=== PATIENT | male | born 1970 | race Caucasian/White ===

== ENCOUNTER 2019-06-04 12:01 | Inpatient (IN) | payer OTHER ==
[2019-06-04] MEDS ORDERED: SODIUM CHLORIDE 0.9% 1,000 ML IV STA (12:39)
--- NOTE | 2019-06-04 13:30 | XR ---
EXAMINATION TYPE: XR chest 2V DATE OF EXAM: 06/04/2019 COMPARISON: NONE TECHNIQUE: PA and lateral views submitted. HISTORY: Dizziness FINDINGS: The lungs are clear and there is no pneumothorax, pleural effusion, or focal pneumonia. Heart is mi ldly enlarged and there is hypertrophic and degenerative change of the spine. No overt failure. Biapi refugio pleural thickening. IMPRESSION: 1. Mild cardiomegaly.
--- NOTE | 2019-06-04 13:33 | ED ---
Dizziness HPI - General Source: patient, RN notes reviewed, old records reviewed Mode of arrival: ambulatory Limitations: no limitations <Sherley Mcbride - Last Filed: 06/04/19 16:44> <Francisco Valero - Last Filed: 06/04/19 17:01> - General Chief Complaint: Dizziness Stated Complaint: lab draws-[facility] Time Seen by Provider: 06/04/19 12:29 - History of Present Illness Initial Comments: 48-year-old male presents emergency department today with [facility] exposure to chemicals work. Patient reports that he was exposed to chemicals that are used to make hot plates, and exposed to "Electropolish". Patient reports his been a certain area where his been exposed to a lecture [place] frequently for the past 2 weeks. Patient states that this occurred on Friday and he is feeling abnormal at that time, with complaints of feeling dizzy. He left work on Friday. He reports he's had persistent paresthesias and shakiness. He states he is had tingling sensation and paresthesias down his bilateral upper extremities, lower extremities and feeling "foggy in his head". Patient complains of feeling somewhat nauseated. He denies any ingestion of the chemicals. He states it would only be exposed to through inhalation. Patient reports that he's had another coworker who had paresthesias around his lips with a near this chemical. (Sherley Mcbride) - Related Data Allergies Allergy/AdvReac Type Severity Reaction Status Date / Time No Known Allergies Allergy Verified 06/04/19 12:11 Review of Systems ROS Other: All systems not noted in ROS Statement are negative. <Sherley Mcbride - Last Filed: 06/04/19 16:44> ROS Other: All systems not noted in ROS Statement are negative. <Francisco Valero - Last Filed: 06/04/19 17:01> ROS Statement: Those systems with pertinent positive or pertinent negative responses have been documented in the HPI. Past Medical History Past Medical History: Hypertension Additional Past Medical History / Comment(s): gout History of Any Multi-Drug Resistant Organisms: None Reported Past Surgical History: Orthopedic Surgery Additional Past Surgical History / Comment(s): rt knee Past Psychological History: No Psychological Hx Reported Smoking Status: Never smoker Past Alcohol Use History: None Reported Past Drug Use History: None Reported <Sherley Mcbride - Last Filed: 06/04/19 16:44> General Exam Limitations: no limitations General appearance: alert, in no apparent distress Head exam: Present: atraumatic, normocephalic, normal inspection Eye exam: Present: normal appearance, PERRL, EOMI. Absent: scleral icterus, conjunctival injection, periorbital swelling ENT exam: Present: normal exam, mucous membranes moist Neck exam: Present: normal inspection. Absent: tenderness, meningismus, lymphadenopathy Respiratory exam: Present: normal lung sounds bilaterally. Absent: respiratory distress, wheezes, rales, rhonchi, stridor Cardiovascular Exam: Present: regular rate, normal rhythm, normal heart sounds. Absent: systolic murmur, diastolic murmur, rubs, gallop, clicks GI/Abdominal exam: Present: soft, normal bowel sounds. Absent: distended, tenderness, guarding, rebound, rigid Extremities exam: Present: normal inspection, full ROM, normal capillary refill, other (Patient has some minor tremor in the upper extremity.). Absent: tenderness, pedal edema, joint swelling, calf tenderness Back exam: Present: normal inspection Neurological exam: Present: alert, oriented X3, CN II-XII intact Psychiatric exam: Present: normal affect, normal mood Skin exam: Present: warm, dry, intact, normal color. Absent: rash <CesiliabarbarawillardSherley - Last Filed: 06/04/19 16:44> - General Exam Comments Initial Comments: 48-year-old male. Alert and oriented. No significant distress. (Sherley Mcbride) Course <Courtney Mcbrideily - Last Filed: 06/04/19 16:44> Vital Signs 06/04/19 06/04/19 06/04/19 12:03 15:02 15:49 Temperature 98.6 F Pulse Rate 88 116 H 104 H Respiratory 20 18 16 Rate Blood Pressure 144/82 195/106 142/76 O2 Sat by Pulse 99 96 96 Oximetry - Reevaluation(s) Reevaluation #1: 06/04/19 16:47 I had a discussion with Dr. Elder from poison control about all the findings with the Patient including thrombocytopenia, neutropenia and persistent symptoms of dizziness, paresthesai with possible exposure to ethylene glycol, phosphoric acid and hydroxyzine take acid. She requests further lab evaluation including CK. She states that it seems unlikely that inhalation of these materials would cause persistent symptoms especially with no further exposure for the past 4 days. She did state that allopurinol, his chronic gout medication could relate to leukopenia and thrombocytopenia. She recommends discontinuing this during his hospital stay. She states that she will continue to follow the case will he is admitted. (RaeSherley) Medical Decision Making - Lab Data Result diagrams: 06/04/19 13:15 06/04/19 13:15 - Radiology Data Radiology results: report reviewed <RaeSherley - Last Filed: 06/04/19 16:44> - Lab Data Result diagrams: 06/04/19 13:15 06/04/19 13:15 <Francisco Valero - Last Filed: 06/04/19 17:01> - Medical Decision Making This patient's a 48-year-old male, who presents emergency Department today for concern for exposure to "electropolish" repeatedly over the past 2 weeks while at work. 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 Patient reports that he's had symptoms of upper and lower extremity paresthesias, feeling dizzy and lightheaded, nausea specifically worsening since Friday. He's had persistent symptoms. Patient was given IV fluids and laboratory obtained. Patient was found to be leukopenic and thrombocytopenia. This was new from some previous labs obtained by his PCP in February. At that time patient's CBC showed a white blood cell count of 9.7 and his platelets were 127. Patient reports that he is a previous drinker but denies any recent alcohol use. With patient's,or chemistry panels were completed. Mildly elevated ALP andAST. Patient does have an elevated serum osmolality at 348. On exam Patient has some minor tremor in upper extremity. Her quite anxious. Patient does have normal sensation and full range of motion and strength in upper and lower extremity. No other neurological deficits. Chest x-ray showed mild cardiomegaly. Patient's CT of the brain is negative for any acute process. With concern for thrombocytopenia and abnormal symptoms we also discussed the case with poison control. I discussed the case with Dr. Bone regards to these findings. She recommends admission, and will continue to follow the case. She states seems confusing and not 100% related to the exposure to the materials in this electropolish. Safety data sheet is on chart with more information on the exposure chemicals. Dr. Elder did recommend discontinuing patient's allopurinol as that could be in relation to his thrombocytopenia and leukopenia. Patient case disucssed with Dr. Valero. (Sherley Mcbride) I did evaluate this patient presenting with dizziness and concern for exposure. Denies ingestion. This would be respiratory exposure only. Patient well- appearing with stable vitals. He has normal lites lites, normal anion gap. S otis osmolality is 358 which is elevated. Case was discussed both with nephrology, Dr. Mecrer and poison control, currently awaiting further recommendations. Nephrology indicates that the patient should be started on lactated Ringer's to maintain hydration. Repeating all studies including osmolality in 6 hours. No need for hemodialysis at this time. I discussed case with the admitting physician Dr. Main. Toxic alcohols are pending. Repeat lab testing pending (Francisco Valero) - Lab Data Lab Results 06/04/19 06/04/19 06/04/19 Range/Units 13:15 13:15 13:15 WBC 2.8 L (3.8-10.6) k/uL RBC 4.10 L (4.30-5.90) m/uL Hgb 14.5 (13.0-17.5) gm/dL Hct 42.1 (39.0-53.0) % MCV 102.6 H (80.0-100.0) fL MCH 35.3 H (25.0-35.0) pg MCHC 34.4 (31.0-37.0) g/dL RDW 12.7 (11.5-15.5) % Plt Count 35 L (150-450) k/uL Neutrophils % (Manual) 50 % Lymphocytes % (Manual) 38 % Monocytes % (Manual) 7 % Eosinophils % (Manual) 4 % Basophils % (Manual) 1 % Neutrophils # (Manual) 1.40 (1.3-7.7) k/uL Lymphocytes # (Manual) 1.06 (1.0-4.8) k/uL Monocytes # (Manual) 0.20 (0-1.0) k/uL Eosinophils # (Manual) 0.11 (0-0.7) k/uL Basophils # (Manual) 0.03 (0-0.2) k/uL Nucleated RBCs 0 (0-0) /100 WBC Manual Slide Review Performed Macrocytosis Slight PT 12.1 H (9.0-12.0) sec INR 1.2 H (<1.2) Carbon Monoxide, Quant (<10.0) % Sodium 141 (137-145) mmol/L Potassium 4.2 (3.5-5.1) mmol/L Chloride 106 (98-107) mmol/L Carbon Dioxide 26 (22-30) mmol/L Anion Gap 9 mmol/L BUN 9 (9-20) mg/dL Creatinine 0.75 (0.66-1.25) mg/dL Est GFR (CKD-EPI)AfAm >90 (>60 ml/min/1.73 sqM) Est GFR (CKD-EPI)NonAf >90 (>60 ml/min/1.73 sqM) Glucose 104 H (74-99) mg/dL Osmolality (280-301) mosm/kg Calcium 8.6 (8.4-10.2) mg/dL Phosphorus 4.4 (2.5-4.5) mg/dL Total Bilirubin 1.3 (0.2-1.3) mg/dL AST 120 H (17-59) U/L ALT 46 (4-49) U/L Alkaline Phosphatase 142 H (38-126) U/L Troponin I (0.000-0.034) ng/mL Total Protein 8.1 (6.3-8.2) g/dL Albumin 4.6 (3.5-5.0) g/dL Urine Color Urine Appearance (Clear) Urine pH (5.0-8.0) Ur Specific [place] (1.001-1.035) Urine Protein (Negative) Urine Glucose (UA) (Negative) Urine Ketones (Negative) Urine Blood (Negative) Urine Nitrite (Negative) Urine Bilirubin (Negative) Urine Urobilinogen (<2.0) mg/dL Ur Leukocyte Esterase (Negative) Urine Opiates Screen (NotDetected) Ur Oxycodone Screen (NotDetected) Urine Methadone Screen (NotDetected) Ur Propoxyphene Screen (NotDetected) Ur Barbiturates Screen (NotDetected) U Tricyclic Antidepress (NotDetected) Ur Phencyclidine Scrn (NotDetected) Ur Amphetamines Screen (NotDetected) U Methamphetamines Scrn (NotDetected) U Benzodiazepines Scrn (NotDetected) Urine Cocaine Screen (NotDetected) U Marijuana (THC) Screen (NotDetected) Acetone, Qual (Negative) 06/04/19 06/04/19 06/04/19 Range/Units 13:15 13:15 13:15 WBC (3.8-10.6) k/uL RBC (4.30-5.90) m/uL Hgb (13.0-17.5) gm/dL Hct (39.0-53.0) % MCV (80.0-100.0) fL MCH (25.0-35.0) pg MCHC (31.0-37.0) g/dL RDW (11.5-15.5) % Plt Count (150-450) k/uL Neutrophils % (Manual) % Lymphocytes % (Manual) % Monocytes % (Manual) % Eosinophils % (Manual) % Basophils % (Manual) % Neutrophils # (Manual) (1.3-7.7) k/uL Lymphocytes # (Manual) (1.0-4.8) k/uL Monocytes # (Manual) (0-1.0) k/uL Eosinophils # (Manual) (0-0.7) k/uL Basophils # (Manual) (0-0.2) k/uL Nucleated RBCs (0-0) /100 WBC Manual Slide Review Macrocytosis PT (9.0-12.0) sec INR (<1.2) Carbon Monoxide, Quant 1.9 (<10.0) % Sodium (137-145) mmol/L Potassium (3.5-5.1) mmol/L Chloride (98-107) mmol/L Carbon Dioxide (22-30) mmol/L Anion Gap mmol/L BUN (9-20) mg/dL Creatinine (0.66-1.25) mg/dL Est GFR (CKD-EPI)AfAm (>60 ml/min/1.73 sqM) Est GFR (CKD-EPI)NonAf (>60 ml/min/1.73 sqM) Glucose (74-99) mg/dL Osmolality 348 H* (280-301) mosm/kg Calcium (8.4-10.2) mg/dL Phosphorus (2.5-4.5) mg/dL Total Bilirubin (0.2-1.3) mg/dL AST (17-59) U/L ALT (4-49) U/L Alkaline Phosphatase (38-126) U/L Troponin I <0.012 (0.000-0.034) ng/mL Total Protein (6.3-8.2) g/dL Albumin (3.5-5.0) g/dL Urine Color Urine Appearance (Clear) Urine pH (5.0-8.0) Ur Specific [place] (1.001-1.035) Urine Protein (Negative) Urine Glucose (UA) (Negative) Urine Ketones (Negative) Urine Blood (Negative) Urine Nitrite (Negative) Urine Bilirubin (Negative) Urine Urobilinogen (<2.0) mg/dL Ur Leukocyte Esterase (Negative) Urine Opiates Screen (NotDetected) Ur Oxycodone Screen (NotDetected) Urine Methadone Screen (NotDetected) Ur Propoxyphene Screen (NotDetected) Ur Barbiturates Screen (NotDetected) U Tricyclic Antidepress (NotDetected) Ur Phencyclidine Scrn (NotDetected) Ur Amphetamines Screen (NotDetected) U Methamphetamines Scrn (NotDetected) U Benzodiazepines Scrn (NotDetected) Urine Cocaine Screen (NotDetected) U Marijuana (THC) Screen (NotDetected) Acetone, Qual (Negative) 06/04/19 06/04/19 Range/Units 14:56 16:35 WBC (3.8-10.6) k/uL RBC (4.30-5.90) m/uL Hgb (13.0-17.5) gm/dL Hct (39.0-53.0) % MCV (80.0-100.0) fL MCH (25.0-35.0) pg MCHC (31.0-37.0) g/dL RDW (11.5-15.5) % Plt Count (150-450) k/uL Neutrophils % (Manual) % Lymphocytes % (Manual) % Monocytes % (Manual) % Eosinophils % (Manual) % Basophils % (Manual) % Neutrophils # (Manual) (1.3-7.7) k/uL Lymphocytes # (Manual) (1.0-4.8) k/uL Monocytes # (Manual) (0-1.0) k/uL Eosinophils # (Manual) (0-0.7) k/uL Basophils # (Manual) (0-0.2) k/uL Nucleated RBCs (0-0) /100 WBC Manual Slide Review Macrocytosis PT (9.0-12.0) sec INR (<1.2) Carbon Monoxide, Quant (<10.0) % Sodium (137-145) mmol/L Potassium (3.5-5.1) mmol/L Chloride (98-107) mmol/L Carbon Dioxide (22-30) mmol/L Anion Gap mmol/L BUN (9-20) mg/dL Creatinine (0.66-1.25) mg/dL Est GFR (CKD-EPI)AfAm (>60 ml/min/1.73 sqM) Est GFR (CKD-EPI)NonAf (>60 ml/min/1.73 sqM) Glucose (74-99) mg/dL Osmolality (280-301) mosm/kg Calcium (8.4-10.2) mg/dL Phosphorus (2.5-4.5) mg/dL Total Bilirubin (0.2-1.3) mg/dL AST (17-59) U/L ALT (4-49) U/L Alkaline Phosphatase (38-126) U/L Troponin I (0.000-0.034) ng/mL Total Protein (6.3-8.2) g/dL Albumin (3.5-5.0) g/dL Urine Color Yellow Urine Appearance Clear (Clear) Urine pH 7.0 (5.0-8.0) Ur Specific [place] 1.016 (1.001-1.035) Urine Protein Negative (Negative) Urine Glucose (UA) Negative (Negative) Urine Ketones Negative (Negative) Urine Blood Negative (Negative) Urine Nitrite Negative (Negative) Urine Bilirubin Negative (Negative) Urine Urobilinogen 2.0 (<2.0) mg/dL Ur Leukocyte Esterase Negative (Negative) Urine Opiates Screen Not Detected (NotDetected) Ur Oxycodone Screen Not Detected (NotDetected) Urine Methadone Screen Not Detected (NotDetected) Ur Propoxyphene Screen Not Detected (NotDetected) Ur Barbiturates Screen Not Detected (NotDetected) U Tricyclic Antidepress Not Detected (NotDetected) Ur Phencyclidine Scrn Not Detected (NotDetected) Ur Amphetamines Screen Not Detected (NotDetected) U Methamphetamines Scrn Not Detected (NotDetected) U Benzodiazepines Scrn Not Detected (NotDetected) Urine Cocaine Screen Not Detected (NotDetected) U Marijuana (THC) Screen Not Detected (NotDetected) Acetone, Qual Negative (Negative) 06/04/19 14:18 EKG performed at 1309 shows normal sinus rhythm normal EKG. Ventricular rate of 80 bpm. Verbal is 172 ms. QS duration is 102 ms. QT QTc is 392/476 ms. (Sherley Mcbride) - Radiology Data CT of the brain is normal. Chest x-ray shows mild cardiomegaly. (Sherley Mcbride) Disposition Is patient prescribed a controlled substance at d/c from ED?: No Time of Disposition: 16:54 <Sherley Mcbride - Last Filed: 06/04/19 16:44> <Francisco Valero - Last Filed: 06/04/19 17:01> Clinical Impression: Toxic reaction to chemical, Paresthesia, Dizziness, Nausea, Acquired TTP, Leukopenia, High serum osmolar gap Disposition: ADMITTED IP TO THIS [facility] Condition: Stable Referrals: Harvey Galicia DO [Primary Care Provider] - 1-2 days
[2019-06-04 13:47] LABS: ALT 46 U/L (4-49); AST 120 U/L (17-59); African American GFR (CKD) >90 (>60 ml/min/1.73 sqM); Albumin 4.6 g/dL (3.5-5.0); Alkaline Phosphatase 142 U/L (38-126); Anion Gap 9 mmol/L; Blood Urea Nitrogen 9 mg/dL (9-20); Calcium 8.6 mg/dL (8.4-10.2); Carbon Dioxide 26 mmol/L (22-30); Chloride 106 mmol/L (98-107); Glucose 104 mg/dL (74-99); HCT 42.1 % (39.0-53.0); HGB 14.5 gm/dL (13.0-17.5); MCH 35.3 pg (25.0-35.0); MCHC 34.4 g/dL (31.0-37.0); MCV 102.6 fL (80.0-100.0); Macrocytosis Slight; Mean Platelet Volume 8.4; Non-African American GFR(CKD) >90 (>60 ml/min/1.73 sqM); Phosphorus 4.4 mg/dL (2.5-4.5); Potassium 4.2 mmol/L (3.5-5.1); RDW 12.7 % (11.5-15.5); Sodium 141 mmol/L (137-145); Total Bilirubin 1.3 mg/dL (0.2-1.3); Total Protein 8.1 g/dL (6.3-8.2); WBC 2.8 k/uL (3.8-10.6)
[2019-06-04 13:48] LABS: INR 1.2 (<1.2); Prothrombin Time 12.1 sec (9.0-12.0)
[2019-06-04 14:03] LABS: Basophils # (M) 0.03 k/uL (0-0.2); Eosinophils # (M) 0.11 k/uL (0-0.7); Lymphocytes # (M) 1.06 k/uL (1.0-4.8); Neutrophils % (M) 50 %; Nucleated Red Blood Cells 0 /100 WBC (0-0); Total Cells Counted 100
[2019-06-04 14:04] LABS: Platelet Count 35 k/uL (150-450)
[2019-06-04] MEDS ORDERED: LORazepam 2 MG/ML INJ IV STA (15:16)
[2019-06-04 15:20] LABS: Appearance,Urine Clear (Clear); Bilirubin,Urine Negative (Negative); Blood,Urine Negative (Negative); Color,Urine Yellow; Glucose,Urine (UA) Negative (Negative); Ketones,Urine Negative (Negative); Leukocyte Esterase,Urine Negative (Negative); Nitrite,Urine Negative (Negative); Protein,Urine Negative (Negative); Specific Gravity,Urine 1.016 (1.001-1.035)
[2019-06-04 15:29] LABS: Amphetamine Screen,Urine Not Detected (NotDetected); Benzodiazepines Screen,Urine Not Detected (NotDetected); Cocaine Screen,Urine Not Detected (NotDetected); Opiate Screen,Urine Not Detected (NotDetected); Phencyclidine Screen,Urine Not Detected (NotDetected); Tricyclic Antidepressant,Urine Not Detected (NotDetected); Urn Cannabinoid Scrn Not Detected (NotDetected)
[2019-06-04 15:30] LABS: Barbiturate Screen,Urine Not Detected (NotDetected); Methadone Screen, Urine Not Detected (NotDetected); Oxycodone Screen, Urine Not Detected (NotDetected)
--- NOTE | 2019-06-04 15:58 | CT ---
EXAMINATION TYPE: CT brain wo con DATE OF EXAM: 06/04/2019 COMPARISON: None INDICATION: Dizziness. Headache DLP: 1205.4 mGycm, Automated exposure control for dose reduction was used. CONTRAST: None CT of the brain is performed utilizing 3 mm thick sections through the posterior fossa and 3 mm thick sections through the remaining calvarium. Study is performed within 24 hours of arrival to the hosp [facility]. No abnormal hyperdensity is present to suggest an acute intracranial hemorrhage. No mass lesion is evident. No acute infarcts are evident. Ventricles and sulci are appropriate for the patient age. Paranasal sinuses and mastoid air cells within the [id number] are clear. IMPRESSIONS: 1. Normal CT Brain
[2019-06-04] MEDS ORDERED: SODIUM CHLORIDE 0.9% 500 ML 500 ML IV ONE (16:05)
[2019-06-04] MEDS ORDERED: SODIUM CHLORIDE 0.9% 1,000 ML IV SCH (16:30)
[2019-06-04] MEDS ORDERED: LACTATED RINGERS 1,000 ML IV ONE (16:44)
[2019-06-04] MEDS ORDERED: KETOROLAC 30 MG/ML 1 ML VIAL IVP PRN (16:55)
[2019-06-04] MEDS ORDERED: ACETAMINOPHEN TAB 325 MG TAB PO PRN (16:55)
[2019-06-04] MEDS ORDERED: LORazepam 2 MG/ML INJ IV PRN ×4 (16:55→17:50)
[2019-06-04] MEDS ORDERED: NALOXONE 0.4 MG/ML 1 ML VIAL IV PRN (16:55)
[2019-06-04] MEDS ORDERED: MORPHINE SULFATE 4 MG/ML SYRINGE IV PRN (16:55)
--- NOTE | 2019-06-04 16:59 | ED ---
Medical Decision Making - Medical Decision Making Addendum to add additional diagnoses of neutropenia, thrombocytopenia. - Lab Data Result diagrams: 06/04/19 13:15 06/04/19 13:15 Lab Results 06/04/19 06/04/19 06/04/19 Range/Units 13:15 13:15 13:15 WBC 2.8 L (3.8-10.6) k/uL RBC 4.10 L (4.30-5.90) m/uL Hgb 14.5 (13.0-17.5) gm/dL Hct 42.1 (39.0-53.0) % MCV 102.6 H (80.0-100.0) fL MCH 35.3 H (25.0-35.0) pg MCHC 34.4 (31.0-37.0) g/dL RDW 12.7 (11.5-15.5) % Plt Count 35 L (150-450) k/uL Neutrophils % (Manual) 50 % Lymphocytes % (Manual) 38 % Monocytes % (Manual) 7 % Eosinophils % (Manual) 4 % Basophils % (Manual) 1 % Neutrophils # (Manual) 1.40 (1.3-7.7) k/uL Lymphocytes # (Manual) 1.06 (1.0-4.8) k/uL Monocytes # (Manual) 0.20 (0-1.0) k/uL Eosinophils # (Manual) 0.11 (0-0.7) k/uL Basophils # (Manual) 0.03 (0-0.2) k/uL Nucleated RBCs 0 (0-0) /100 WBC Manual Slide Review Performed Macrocytosis Slight PT 12.1 H (9.0-12.0) sec INR 1.2 H (<1.2) Carbon Monoxide, Quant (<10.0) % Sodium 141 (137-145) mmol/L Potassium 4.2 (3.5-5.1) mmol/L Chloride 106 (98-107) mmol/L Carbon Dioxide 26 (22-30) mmol/L Anion Gap 9 mmol/L BUN 9 (9-20) mg/dL Creatinine 0.75 (0.66-1.25) mg/dL Est GFR (CKD-EPI)AfAm >90 (>60 ml/min/1.73 sqM) Est GFR (CKD-EPI)NonAf >90 (>60 ml/min/1.73 sqM) Glucose 104 H (74-99) mg/dL Osmolality (280-301) mosm/kg Calcium 8.6 (8.4-10.2) mg/dL Phosphorus 4.4 (2.5-4.5) mg/dL Total Bilirubin 1.3 (0.2-1.3) mg/dL AST 120 H (17-59) U/L ALT 46 (4-49) U/L Alkaline Phosphatase 142 H (38-126) U/L Troponin I (0.000-0.034) ng/mL Total Protein 8.1 (6.3-8.2) g/dL Albumin 4.6 (3.5-5.0) g/dL Urine Color Urine Appearance (Clear) Urine pH (5.0-8.0) Ur Specific [place] (1.001-1.035) Urine Protein (Negative) Urine Glucose (UA) (Negative) Urine Ketones (Negative) Urine Blood (Negative) Urine Nitrite (Negative) Urine Bilirubin (Negative) Urine Urobilinogen (<2.0) mg/dL Ur Leukocyte Esterase (Negative) Urine Opiates Screen (NotDetected) Ur Oxycodone Screen (NotDetected) Urine Methadone Screen (NotDetected) Ur Propoxyphene Screen (NotDetected) Ur Barbiturates Screen (NotDetected) U Tricyclic Antidepress (NotDetected) Ur Phencyclidine Scrn (NotDetected) Ur Amphetamines Screen (NotDetected) U Methamphetamines Scrn (NotDetected) U Benzodiazepines Scrn (NotDetected) Urine Cocaine Screen (NotDetected) U Marijuana (THC) Screen (NotDetected) 06/04/19 06/04/19 06/04/19 Range/Units 13:15 13:15 13:15 WBC (3.8-10.6) k/uL RBC (4.30-5.90) m/uL Hgb (13.0-17.5) gm/dL Hct (39.0-53.0) % MCV (80.0-100.0) fL MCH (25.0-35.0) pg MCHC (31.0-37.0) g/dL RDW (11.5-15.5) % Plt Count (150-450) k/uL Neutrophils % (Manual) % Lymphocytes % (Manual) % Monocytes % (Manual) % Eosinophils % (Manual) % Basophils % (Manual) % Neutrophils # (Manual) (1.3-7.7) k/uL Lymphocytes # (Manual) (1.0-4.8) k/uL Monocytes # (Manual) (0-1.0) k/uL Eosinophils # (Manual) (0-0.7) k/uL Basophils # (Manual) (0-0.2) k/uL Nucleated RBCs (0-0) /100 WBC Manual Slide Review Macrocytosis PT (9.0-12.0) sec INR (<1.2) Carbon Monoxide, Quant 1.9 (<10.0) % Sodium (137-145) mmol/L Potassium (3.5-5.1) mmol/L Chloride (98-107) mmol/L Carbon Dioxide (22-30) mmol/L Anion Gap mmol/L BUN (9-20) mg/dL Creatinine (0.66-1.25) mg/dL Est GFR (CKD-EPI)AfAm (>60 ml/min/1.73 sqM) Est GFR (CKD-EPI)NonAf (>60 ml/min/1.73 sqM) Glucose (74-99) mg/dL Osmolality 348 H* (280-301) mosm/kg Calcium (8.4-10.2) mg/dL Phosphorus (2.5-4.5) mg/dL Total Bilirubin (0.2-1.3) mg/dL AST (17-59) U/L ALT (4-49) U/L Alkaline Phosphatase (38-126) U/L Troponin I <0.012 (0.000-0.034) ng/mL Total Protein (6.3-8.2) g/dL Albumin (3.5-5.0) g/dL Urine Color Urine Appearance (Clear) Urine pH (5.0-8.0) Ur Specific [place] (1.001-1.035) Urine Protein (Negative) Urine Glucose (UA) (Negative) Urine Ketones (Negative) Urine Blood (Negative) Urine Nitrite (Negative) Urine Bilirubin (Negative) Urine Urobilinogen (<2.0) mg/dL Ur Leukocyte Esterase (Negative) Urine Opiates Screen (NotDetected) Ur Oxycodone Screen (NotDetected) Urine Methadone Screen (NotDetected) Ur Propoxyphene Screen (NotDetected) Ur Barbiturates Screen (NotDetected) U Tricyclic Antidepress (NotDetected) Ur Phencyclidine Scrn (NotDetected) Ur Amphetamines Screen (NotDetected) U Methamphetamines Scrn (NotDetected) U Benzodiazepines Scrn (NotDetected) Urine Cocaine Screen (NotDetected) U Marijuana (THC) Screen (NotDetected) 06/04/19 Range/Units 14:56 WBC (3.8-10.6) k/uL RBC (4.30-5.90) m/uL Hgb (13.0-17.5) gm/dL Hct (39.0-53.0) % MCV (80.0-100.0) fL MCH (25.0-35.0) pg MCHC (31.0-37.0) g/dL RDW (11.5-15.5) % Plt Count (150-450) k/uL Neutrophils % (Manual) % Lymphocytes % (Manual) % Monocytes % (Manual) % Eosinophils % (Manual) % Basophils % (Manual) % Neutrophils # (Manual) (1.3-7.7) k/uL Lymphocytes # (Manual) (1.0-4.8) k/uL Monocytes # (Manual) (0-1.0) k/uL Eosinophils # (Manual) (0-0.7) k/uL Basophils # (Manual) (0-0.2) k/uL Nucleated RBCs (0-0) /100 WBC Manual Slide Review Macrocytosis PT (9.0-12.0) sec INR (<1.2) Carbon Monoxide, Quant (<10.0) % Sodium (137-145) mmol/L Potassium (3.5-5.1) mmol/L Chloride (98-107) mmol/L Carbon Dioxide (22-30) mmol/L Anion Gap mmol/L BUN (9-20) mg/dL Creatinine (0.66-1.25) mg/dL Est GFR (CKD-EPI)AfAm (>60 ml/min/1.73 sqM) Est GFR (CKD-EPI)NonAf (>60 ml/min/1.73 sqM) Glucose (74-99) mg/dL Osmolality (280-301) mosm/kg Calcium (8.4-10.2) mg/dL Phosphorus (2.5-4.5) mg/dL Total Bilirubin (0.2-1.3) mg/dL AST (17-59) U/L ALT (4-49) U/L Alkaline Phosphatase (38-126) U/L Troponin I (0.000-0.034) ng/mL Total Protein (6.3-8.2) g/dL Albumin (3.5-5.0) g/dL Urine Color Yellow Urine Appearance Clear (Clear) Urine pH 7.0 (5.0-8.0) Ur Specific [place] 1.016 (1.001-1.035) Urine Protein Negative (Negative) Urine Glucose (UA) Negative (Negative) Urine Ketones Negative (Negative) Urine Blood Negative (Negative) Urine Nitrite Negative (Negative) Urine Bilirubin Negative (Negative) Urine Urobilinogen 2.0 (<2.0) mg/dL Ur Leukocyte Esterase Negative (Negative) Urine Opiates Screen Not Detected (NotDetected) Ur Oxycodone Screen Not Detected (NotDetected) Urine Methadone Screen Not Detected (NotDetected) Ur Propoxyphene Screen Not Detected (NotDetected) Ur Barbiturates Screen Not Detected (NotDetected) U Tricyclic Antidepress Not Detected (NotDetected) Ur Phencyclidine Scrn Not Detected (NotDetected) Ur Amphetamines Screen Not Detected (NotDetected) U Methamphetamines Scrn Not Detected (NotDetected) U Benzodiazepines Scrn Not Detected (NotDetected) Urine Cocaine Screen Not Detected (NotDetected) U Marijuana (THC) Screen Not Detected (NotDetected) Disposition Clinical Impression: Toxic reaction to chemical, Paresthesia, Dizziness, Nausea, Acquired TTP, Leukopenia, High serum osmolar gap Disposition: ADMITTED IP TO THIS HOSP Condition: Stable Is patient prescribed a controlled substance at d/c from ED?: No Referrals: Harvey Galicia DO [Primary Care Provider] - 1-2 days Time of Disposition: 16:58
[2019-06-04 17:02] LABS: African American GFR (CKD) >90 (>60 ml/min/1.73 sqM); Anion Gap 11 mmol/L; Blood Urea Nitrogen 10 mg/dL (9-20); Calcium 8.5 mg/dL (8.4-10.2); Carbon Dioxide 25 mmol/L (22-30); Chloride 105 mmol/L (98-107); Creatine Kinase 321 U/L (55-170); Glucose 103 mg/dL (74-99); Non-African American GFR(CKD) >90 (>60 ml/min/1.73 sqM); Sodium 141 mmol/L (137-145)
[2019-06-04 17:03] LABS: Basophils % (A) 1 %; Eosinophils # (A) 0.1 k/uL (0-0.7); Eosinophils % (A) 3 %; HCT 42.3 % (39.0-53.0); HGB 14.3 gm/dL (13.0-17.5); Lymphocytes % (A) 33 %; MCHC 33.9 g/dL (31.0-37.0); MCV 103.3 fL (80.0-100.0); Macrocytosis Slight; Mean Platelet Volume 8.3; Monocytes # (A) 0.3 k/uL (0-1.0); Monocytes % (A) 9 %; Neutrophils # (A) 1.5 k/uL (1.3-7.7); Neutrophils % (A) 50 %; RBC 4.09 m/uL (4.30-5.90); RDW 12.6 % (11.5-15.5)
[2019-06-04 17:04] LABS: Alcohol 158 mg/dL; INR 1.2 (<1.2); Prothrombin Time 12.2 sec (9.0-12.0)
[2019-06-04 17:05] LABS: Partial Thromboplastin Time 26.9 sec (22.0-30.0)
[2019-06-04 17:07] LABS: ABG Base Excess -0.7 mmol/L; ABG HCO3 23 mmol/L (21-25); ABG Oxygen Saturation 94.7 % (94-97); ABG PCO2 35 mmHg (35-45); ABG PH 7.44 (7.35-7.45); ABG PO2 74 mmHg (83-108); ABG TCO2 25 mmol/L (19-24); Allen Test Performed? Yes
[2019-06-04 17:14] LABS: Anisocytosis (M) Present
[2019-06-04 17:15] LABS: Platelet Count 29 k/uL (150-450)
[2019-06-04] MEDS ORDERED: THIAMINE 100 MG/ML 2 ML VIAL IM STA (17:50)
[2019-06-04] MEDS: 1: MVI, ADULT NO.4 WITH VIT K 10 ML, THIAMINE 100 MG, FOLIC ACID 1 MG in SODIUM CHLORIDE IV SCH ×4 (18:10)
[2019-06-04 21:25] LABS: African American GFR (CKD) >90 (>60 ml/min/1.73 sqM); Anion Gap 11 mmol/L; Blood Urea Nitrogen 11 mg/dL (9-20); Calcium 8.3 mg/dL (8.4-10.2); Carbon Dioxide 22 mmol/L (22-30); Chloride 106 mmol/L (98-107); Glucose 109 mg/dL (74-99); Non-African American GFR(CKD) >90 (>60 ml/min/1.73 sqM); Potassium 3.8 mmol/L (3.5-5.1); Sodium 139 mmol/L (137-145)
[2019-06-04] MEDS: METOPROLOL TARTRATE 12.5 MG TAB PO SCH (22:10)
[2019-06-04] MEDS: DIAZEPAM 5 MG TAB PO SCH (22:10)
--- NOTE | 2019-06-04 22:56 | P.HPIM ---
History of Present Illness H&P Date: 06/04/19 Chief Complaint: Dizzy History of presenting complaint: This is a 48-year-old patient chronic stable medical conditions include hypertension, gout, morbid obesity. Patient presents with multitudinous symptoms. Patient presents with 1 month of feeling dizzy. Lately feeling foggy in his head. Sometimes feels like his: Passed out. He is noted that when he is closer to the electroplating palpable which is about 10 feet away and sometimes his symptoms are worse. Is also numbness and tingling in hands and feet for quite some time. Does do fever and chill. On closer questioning patient of about 2 months ago was drinking heavy alcohol. Several beers a day. He stopped drinking. Because the symptoms came on for last 2 days again has been drinking alcohol. Patient also tolerated tremors and anxiety while in the hospital. Last drink was yesterday. Review of systems: GEN.: Tired EYES: None HEENT: As above] NECK: None RESPIRATORY: None CARDIOVASCULAR: None GASTROINTESTINAL: None GENITOURINARY: None MUSCULOSKELETAL: None LYMPHATICS: None HEMATOLOGICAL: None PSYCHIATRY: Anxious NEUROLOGICAL: [As above Past medical history to include: Hypertension, gout, morbid obesity Social history: Does not smoke. Was drinking heavily for many years up to 2 months ago started back drinking 2 days ago. . 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 Family history: Reviewed, noncontributory to presentation Physical examination: VITAL SIGNS: [98.6, 116, 18, 1 4276, 96% on room air GENERAL: BMI 45.3, laying in bed, tremors, but anxious. Spider nevi present on the upper chest wall with gynecomastia. Patient has palmar erythema. Prominent superficial veins of the upper body EYES: Pupils equal. Conjunctiva normal. HEENT: External appearance of nose and ears normal, oral cavity grossly normal. NECK: JVD not raised; masses not palpable. HEART: First and second heart sounds are normal; no edema. LUNGS: Respiratory rate normal; clear to auscultation. ABDOMEN: Soft, nontender, liver spleen not palpable, no masses palpable. PSYCH: [Alert and oriented x3; mood and affect anxious l. NEUROLOGICAL: Cranial nerves grossly intact; no facial asymmetry, power and sensation grossly intact. Tremors LYMPHATICS: No lymph nodes palpable in the axilla and neck INVESTIGATIONS, reviewed in the clinical context: White count 2.8 hemoglobin 14.5 MCV 102.6 platelets 35 Pro time 12.1 Potassium 4.2 creatinine 0.75 glucose 104 serum osmolality 348 AST 120 ALT 46 UA negative Urine drug screen negative serum alcohol 158 qualitative acetone negative Assessment: -Acute alcohol withdrawal syndrome as manifested by tachycardia high blood pressure tremors. -Alcoholic liver disease with elevated AST, with signs of chronic liver disease -Bicytopenia likely from alcoholism -Chronic B12 deficiency could be from alcoholism -Morbid obesity BMI 45.3 -Prolonged pro time from alcoholic liver disease -Elevated serum osmolarity and displays cause undetermined -Dizziness cause undetermined Plan: We will order EEG. MRI of the brain with and without contrast. For the alcohol withdrawal syndrome. The patient on Valium 5 mg every 8 and Lopressor 12.53 times a day to cut back on the sympathetic drive. Nephrology was consulted. Also getting IV fluids. Care was discussed with the patient question were answered Past Medical History Past Medical History: Hypertension Additional Past Medical History / Comment(s): gout History of Any Multi-Drug Resistant Organisms: None Reported Past Surgical History: Orthopedic Surgery Additional Past Surgical History / Comment(s): rt knee Past Psychological History: No Psychological Hx Reported Smoking Status: Never smoker Past Alcohol Use History: None Reported Past Drug Use History: None Reported Medications and Allergies Home Medications Medication Instructions Recorded Confirmed Type Allopurinol [Zyloprim] 300 mg PO DAILY 06/04/19 06/04/19 History Cyanocobalamin [Vitamin B-12 1,000 mcg SQ SA 06/04/19 06/04/19 History Injection] Furosemide [Lasix] 20 mg PO DAILY 06/04/19 06/04/19 History Lisinopril-Hctz 20-12.5 mg 1 tab PO DAILY 06/04/19 06/04/19 History [Zestoretic 20-12.5] Allergies Allergy/AdvReac Type Severity Reaction Status Date / Time No Known Allergies Allergy Verified 06/04/19 17:25 Physical Exam Vitals: Vital Signs Temp Pulse Pulse Resp BP BP Pulse Ox 06/04/19 19:22 98.3 F 111 H 18 183/85 95 06/04/19 15:49 104 H 16 142/76 96 06/04/19 15:02 116 H 18 195/106 96 06/04/19 12:03 98.6 F 88 20 144/82 99 Intake and Output 06/04/19 06/04/19 06/04/19 06:59 14:59 22:59 Other: Voiding Method Toilet Weight 155.764 kg Results CBC & Chem 7: 06/04/19 16:35 06/04/19 20:55 Labs: Abnormal Lab Results - Last 24 Hours (Table) 06/04/19 06/04/19 06/04/19 Range/Units 13:15 13:15 13:15 WBC 2.8 L (3.8-10.6) k/uL RBC 4.10 L (4.30-5.90) m/uL MCV 102.6 H (80.0-100.0) fL MCH 35.3 H (25.0-35.0) pg Plt Count 35 L (150-450) k/uL PT 12.1 H (9.0-12.0) sec INR 1.2 H (<1.2) ABG pO2 (83-108) mmHg ABG Total CO2 (19-24) mmol/L Glucose 104 H (74-99) mg/dL Osmolality (280-301) mosm/kg Calcium (8.4-10.2) mg/dL AST 120 H (17-59) U/L Alkaline Phosphatase 142 H (38-126) U/L Creatine Kinase (55-170) U/L 06/04/19 06/04/19 06/04/19 Range/Units 13:15 16:35 16:35 WBC 3.0 L (3.8-10.6) k/uL RBC 4.09 L (4.30-5.90) m/uL MCV 103.3 H (80.0-100.0) fL MCH (25.0-35.0) pg Plt Count 29 L (150-450) k/uL PT 12.2 H (9.0-12.0) sec INR 1.2 H (<1.2) ABG pO2 (83-108) mmHg ABG Total CO2 (19-24) mmol/L Glucose (74-99) mg/dL Osmolality 348 H* (280-301) mosm/kg Calcium (8.4-10.2) mg/dL AST (17-59) U/L Alkaline Phosphatase (38-126) U/L Creatine Kinase (55-170) U/L 06/04/19 06/04/1920 Range/Units 16:35 16:57 20:55 WBC (3.8-10.6) k/uL RBC (4.30-5.90) m/uL MCV (80.0-100.0) fL MCH (25.0-35.0) pg Plt Count (150-450) k/uL PT (9.0-12.0) sec INR (<1.2) ABG pO2 74 L (83-108) mmHg ABG Total CO2 25 H (19-24) mmol/L Glucose 103 H 109 H (74-99) mg/dL Osmolality (280-301) mosm/kg Calcium 8.3 L (8.4-10.2) mg/dL AST (17-59) U/L Alkaline Phosphatase (38-126) U/L Creatine Kinase 321 H (55-170) U/L
[2019-06-05] MEDS: 1: MVI, ADULT NO.4 WITH VIT K 10 ML, THIAMINE 100 MG, FOLIC ACID 1 MG in SODIUM CHLORIDE IV SCH ×8 (04:10→19:10)
[2019-06-05] MEDS: FUROSEMIDE 20 MG TAB PO SCH (07:44)
[2019-06-05] MEDS: THIAMINE 100 MG TAB PO SCH ×2 (07:44→16:29)
[2019-06-05] MEDS: LISINOPRIL-HCTZ 20-12.5 MG 1 EACH TAB PO SCH (07:44)
[2019-06-05] MEDS: METOPROLOL TARTRATE 12.5 MG TAB PO SCH ×3 (07:44→21:42)
[2019-06-05] MEDS: DIAZEPAM 5 MG TAB PO SCH ×3 (07:45→21:42)
[2019-06-05] MEDS ORDERED: CYANOCOBALAMIN 1,000 MCG/ML 1 ML VIAL SQ SCH (09:00)
[2019-06-05] MEDS ORDERED: PANTOPRAZOLE 40 MG/10 ML VIAL IV SCH (09:00)
--- NOTE | 2019-06-05 12:57 | P.NPCON ---
History of Present Illness - Reason for Consult Consult date: 06/05/19 (Elevated osmolar gap) - Chief Complaint Not feeling well, dizziness - History of Present Illness 48-year-old gentleman coming to the hospital with the above complaints. For a month he's been not feeling well with dizziness lightheadedness. He admits in close contact with electroplating and feels that his symptoms got worse with that. On admission his serum alcohol levels were 158 osmolality was 348. Nephrology was consulted for high osmolar gap. Denies any history of antifreeze abuse or toxic alcohol abuse. No nausea vomiting diarrhea. Has history of chronic alcohol abuse. Review of Systems Constitutional: Reports as per HPI Past Medical History Past Medical History: Hypertension Additional Past Medical History / Comment(s): gout, varicose veins History of Any Multi-Drug Resistant Organisms: None Reported Past Surgical History: Orthopedic Surgery Additional Past Surgical History / Comment(s): rt knee Past Psychological History: No Psychological Hx Reported Smoking Status: Former smoker Past Alcohol Use History: None Reported Past Drug Use History: None Reported - Past Family History Father Family Medical History: Myocardial Infarction ([place]) Medications and Allergies Home Medications Medication Instructions Recorded Confirmed Type Allopurinol [Zyloprim] 300 mg PO DAILY 06/04/19 06/04/19 History Cyanocobalamin [Vitamin B-12 1,000 mcg SQ SA 06/04/19 06/04/19 History Injection] Furosemide [Lasix] 20 mg PO DAILY 06/04/19 06/04/19 History Lisinopril-Hctz 20-12.5 mg 1 tab PO DAILY 06/04/19 06/04/19 History [Zestoretic 20-12.5] Allergies Allergy/AdvReac Type Severity Reaction Status Date / Time No Known Allergies Allergy Verified 06/04/19 17:25 Physical Exam Vitals: Vital Signs Temp Pulse Pulse Resp BP BP Pulse Ox 06/05/19 07:00 98.5 F 87 18 155/79 95 06/05/19 04:23 84 166/80 06/05/19 02:38 98.6 F 102 H 17 91 L 06/04/19 19:22 98.3 F 111 H 18 183/85 95 06/04/19 15:49 104 H 16 142/76 96 06/04/19 15:02 116 H 18 195/106 96 Intake and Output 06/04/19 06/05/19 06/05/19 22:59 06:59 14:59 Intake Total 20 Balance 20 Intake: Oral 20 Other: Voiding Method Toilet Toilet Weight 155.764 kg No acute distress S1-S2 heard Lungs clear Abdomen soft No edema Results - Lab Results Most recent lab results ABG pH 7.44 (7.35-7.45) 06/04/19 16:57 ABG pCO2 35 mmHg (35-45) 06/04/19 16:57 ABG pO2 74 mmHg (83-108) L 06/04/19 16:57 ABG HCO3 23 mmol/L (21-25) 06/04/19 16:57 ABG O2 Saturation 94.7 % (94-97) 06/04/19 16:57 Calcium 8.3 mg/dL (8.4-10.2) L 06/04/19 20:55 Phosphorus 4.4 mg/dL (2.5-4.5) 06/04/19 13:15 06/04/19 16:35 06/04/19 20:55 Assessment and Plan Assessment: #1 osmolar gap with normal renal function and no anion gap metabolic acidosis suspect secondary to alcohol use. #2 essential hypertension #3 chronic alcohol abuse #4 leukopenia with thrombocytopenia suspect secondary to chronic alcoholism Plan: #1suspicion for toxic alcohol abuse, osmolar gap Improved with hydration. #2 stable from nephrology point of view for discharge.
[2019-06-05] MEDS ORDERED: DIAZEPAM 5 MG TAB PO SCH (13:01)
--- NOTE | 2019-06-05 17:40 | P.PN ---
Progress Note - Text Progress Note Date: 06/05/19 Chief Complaint: Dizzy History of presenting complaint: This is a 48-year-old patient chronic stable medical conditions include hypertension, gout, morbid obesity. Patient presents with multitudinous symptoms. Patient presents with 1 month of feeling dizzy. Lately feeling foggy in his head. Sometimes feels like his: Passed out. He is noted that when he is closer to the electroplating palpable which is about 10 feet away and sometimes his symptoms are worse. Is also numbness and tingling in hands and feet for quite some time. Does do fever and chill. On closer questioning patient of about 2 months ago was drinking heavy alcohol. Several beers a day. He stopped drinking. Because the symptoms came on for last 2 days again has been drinking alcohol. Patient also tolerated tremors and anxiety while in the hospital. Last drink was yesterday. Admitted with-acute alcohol withdrawal, osmolar gap to to alcoholism. Started on Valium beta kenzie. IV fluids. Today-doing much better this morning. Some tremor still present. A bit less anxious. is present. Review of systems: Was done for constitutional, cardiovascular, GI, pulmonary. relevant finding as above Active Medications Acetaminophen (Tylenol Tab) 650 mg PO Q6HR PRN PRN Reason: Mild Pain or Fever > 100.5 Cyanocobalamin (Vitamin B-12) 1,000 mcg SQ Sa@0900 [facility] Last Admin: 06/05/19 07:46 Dose: 1,000 mcg Documented by: Diazepam (Valium) 5 mg PO TID [facility] Last Admin: 06/05/19 16:29 Dose: 5 mg Documented by: Furosemide (Lasix) 20 mg PO DAILY [facility] Last Admin: 06/05/19 07:44 Dose: 20 mg Documented by: Lisinopril/HCTZ (Zestoretic 20-12.5) 1 each PO DAILY [facility] Last Admin: 06/05/19 07:44 Dose: 1 each Documented by: Parenteral Vitamin Supplement 10 ml/ Thiamine HCl 100 mg/Folic Acid 1 mg/ Sodium Chloride 1,011.2 mls @ 100 mls/hr IV .BY DURATION [facility] Last Admin: 06/04/19 18:10 Dose: 100 mls/hr Documented by: Sodium Chloride (Saline 0.9%) 1,000 mls @ 100 mls/hr IV .BY DURATION [facility] Last Admin: 06/05/19 04:10 Dose: 100 mls/hr Documented by: Ketorolac Tromethamine (Toradol) 30 mg IVP Q6HR PRN PRN Reason: Moderate Pain Stop: 06/09/19 16:56 Lorazepam (Ativan) 0.5 mg IV Q6HR PRN PRN Reason: Anxiety Lorazepam (Ativan) 1 mg IV Q2HR PRN PRN Reason: CIWA 8 or 9 Last Admin: 06/05/19 07:46 Dose: 1 mg Documented by: Lorazepam (Ativan) 1 mg IV Q1HR PRN PRN Reason: CIWA 10 to 15 Lorazepam (Ativan) 2 mg IV Q10M PRN PRN Reason: CIWA 16 or higher Stop: 06/06/19 17:50 Metoprolol Tartrate (Lopressor) 12.5 mg PO TID [facility] Last Admin: 06/05/19 16:29 Dose: 12.5 mg Documented by: Naloxone HCl (Narcan) 0.2 mg IV Q2M PRN PRN Reason: Opioid Reversal Thiamine HCl (Vitamin B-1) 100 mg PO BID-W/MEALS [facility] Last Admin: 06/05/19 16:29 Dose: 100 mg Documented by: Physical examination: VITAL SIGNS: 98.5, 87, 18, 155/79, 95% on room air GENERAL: Sitting up. Spider nevi present on the upper chest wall with gynecomastia. Patient has palmar erythema. Prominent superficial veins of the upper body EYES: Pupils equal. Conjunctiva normal. HEENT: External appearance of nose and ears normal, oral cavity grossly normal. NECK: JVD not raised; masses not palpable. HEART: First and second heart sounds are normal; no edema. LUNGS: Respiratory rate normal; clear to auscultation. ABDOMEN: Soft, nontender, liver spleen not palpable, no masses palpable. PSYCH: [Alert and oriented x3; mood and affect anxious NEUROLOGICAL: Cranial nerves grossly intact; no facial asymmetry, power and sensation grossly intact. Tremors INVESTIGATIONS, reviewed in the clinical context: Serum osmolality-297 Previous testing White count 2.8 hemoglobin 14.5 MCV 102.6 platelets 35 Pro time 12.1 Potassium 4.2 creatinine 0.75 glucose 104 serum osmolality 348 AST 120 ALT 46 UA negative Urine drug screen negative serum alcohol 158 qualitative acetone negative Assessment: -Acute alcohol withdrawal syndrome as manifested by tachycardia high blood pressure tremors. -Alcoholic liver disease with elevated AST, with signs of chronic liver disease -Bicytopenia likely from alcoholism likely from myelosuppression -Chronic B12 deficiency could be from alcoholism -Morbid obesity BMI 45.3 -Prolonged pro time from alcoholic liver disease -Elevated serum osmolarity from alcoholism -Dizziness cause undetermined Plan: Patient will need an open MRI. Will be done as an outpatient. Discussed at length with the patient and . Counseled against alcoholism. 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 Patient numbers greatly improved with hydration. All his presentation is felt to be from alcoholism. We'll have the patient follow-up as an outpatient for hematology. Continue with Valium beta kenzie for another 24 hours.
[2019-06-06] MEDS: 1: MVI, ADULT NO.4 WITH VIT K 10 ML, THIAMINE 100 MG, FOLIC ACID 1 MG in SODIUM CHLORIDE IV SCH ×4 (03:09)
[2019-06-06 07:09] LABS: HCT 39.1 % (39.0-53.0); MCH 34.7 pg (25.0-35.0); MCHC 33.1 g/dL (31.0-37.0); MCV 104.6 fL (80.0-100.0); Macrocytosis Slight; Mean Platelet Volume 8.2; RBC 3.74 m/uL (4.30-5.90); RDW 12.3 % (11.5-15.5); WBC 2.4 k/uL (3.8-10.6)
[2019-06-06 07:15] LABS: Platelet Count 22 k/uL (150-450)
[2019-06-06 07:18] LABS: African American GFR (CKD) >90 (>60 ml/min/1.73 sqM); Anion Gap 7 mmol/L; Blood Urea Nitrogen 15 mg/dL (9-20); Calcium 8.5 mg/dL (8.4-10.2); Carbon Dioxide 24 mmol/L (22-30); Chloride 107 mmol/L (98-107); Glucose 89 mg/dL (74-99); Non-African American GFR(CKD) >90 (>60 ml/min/1.73 sqM); Potassium 3.3 mmol/L (3.5-5.1); Sodium 138 mmol/L (137-145)
[2019-06-06 08:31] VITALS: BP 146/88; PULSE 107; RESP 16; TEMP 98.4
--- NOTE | 2019-06-06 09:30 | US ---
EXAMINATION TYPE: US abdomen limited DATE OF EXAM: 06/06/2019 COMPARISON: NONE CLINICAL HISTORY: 48-year-old male pain, Alcoholism. TECHNIQUE: Multiple sonographic images of the right upper quadrant are obtained. FINDINGS: EXAM MEASUREMENTS: Liver Length: 15.9 cm Gallbladder Wall: 0.3 cm CBD: 6.4 mm. Right Kidney: 12.2 x 5.1 x 6.6 cm TELECOMMUNICATIONS PROJECT MANAGER NOTES: Technically difficult study due to body habitus and midline bowel gas. Pancreas: visualized portions wnl Liver: Mildly heterogeneous and echogenic. No focal lesion is seen. Gallbladder: No stones seen. No abnormal gallbladder distention or wall thickening. Evidence for sonographic Soto's sign: No CBD: Borderline dilated. Right Kidney: No hydronephrosis. IMPRESSION: 1. Mildly heterogeneous and echogenic appearance to the liver. Correlate for underlying nonspecific h epatocellular disease. 2. Bile duct is borderline dilated at 6.4 mm. Correlate with alkaline phosphatase and bilirubin level s to exclude early biliary obstruction. All
[2019-06-06] MEDS: LISINOPRIL-HCTZ 20-12.5 MG 1 EACH TAB PO SCH (09:46)
[2019-06-06] MEDS: THIAMINE 100 MG TAB PO SCH (09:46)
[2019-06-06] MEDS: DIAZEPAM 5 MG TAB PO SCH (09:47)
[2019-06-06] MEDS: METOPROLOL TARTRATE 12.5 MG TAB PO SCH (09:47)
[2019-06-06] MEDS: FUROSEMIDE 20 MG TAB PO SCH (09:47)
--- NOTE | 2019-06-06 12:01 | P.PN ---
Subjective Progress Note Date: 06/06/19 Follow-up for elevated osmolar gap. Feels better today. Improved dizziness lightheadedness. Objective - Vital Signs Vital signs: Vital Signs Temp 98.4 F 06/06/19 07:00 Pulse 107 H 06/06/19 08:20 Resp 16 06/06/19 08:20 BP 146/88 06/06/19 07:00 Pulse Ox 96 06/06/19 07:00 Intake & Output 06/05/19 06/06/19 06/06/19 17:59 06:59 18:59 Intake Total Balance Intake: Intake, IV Titration Amount Sodium Chloride 0.9% 1, 000 ml @ 100 mls/hr IV . BY DURATION [facility] Rx#: [id number] Oral Other: Voiding Method Toilet # Voids 3 - Exam No acute distress S1-S2 heard Lungs clear Abdomen soft No edema - Labs CBC & Chem 7: 06/06/19 06:14 06/06/19 06:14 Labs: Abnormal Lab Results - Last 24 Hours (Table) 06/06/19 06/06/19 Range/Units 06:14 06:14 WBC 2.4 L (3.8-10.6) k/uL RBC 3.74 L (4.30-5.90) m/uL MCV 104.6 H (80.0-100.0) fL Plt Count 22 L (150-450) k/uL Potassium 3.3 L (3.5-5.1) mmol/L Assessment and Plan Assessment: #1 osmolar gap with normal renal function and no anion gap metabolic acidosis suspect secondary to ethyl alcohol use. #2 essential hypertension #3 chronic alcohol abuse #4 leukopenia with thrombocytopenia suspect secondary to chronic alcoholism #5 hypokalemia suspect secondary to do well diuretic use with Lasix and hydrochlorothiazide. Plan: #1no suspicion for toxic alcohol abuse, osmolar gap Improved with hydration. #2 stop Lasix as he is already on hydrochlorothiazide. Otherwise hypokalemia will get worse #3 adjust antihypertensive medications as outpatient.
--- NOTE | 2019-06-06 19:41 | EEG ---
ELECTROENCEPHALOGRAM REPORT PROCEDURE DATE: 06/05/2019. ELECTROENCEPHALOGRAM (EEG) REPORT: TECHNIQUE: A routine 18 channel EEG was performed with video using the 10/20 international electrode placement system. HISTORY: Dizziness, bilateral upper and lower extremity numbness and tingling. CURRENT MEDICATIONS: Lasix, Lopressor, Ativan, vitamin B12, Valium. STUDY DURATION: 25 minutes. FINDINGS: BACKGROUND: The background activity consists of 8-9 hertz rhythmic waveforms symmetric through both posterior quadrants. ACTIVATION: Hyperventilation: Not performed. Photic stimulation: Symmetric driving seen. Sleep: None. ABNORMALITIES: None. IMPRESSION: Normal EEG. No epileptiform activity was present. No seizures were recorded. MMODL / IJN: [id number] /
--- NOTE | 2019-06-06 21:23 | P.DS ---
Providers Date of admission: 06/04/19 17:43 Expected date of discharge: 06/06/19 Attending physician: Otilio Main Consults: 06/04/19 17:51 Consult Physician Stat Consulting Provider: Saba Stacy Consult Reason/Comments: serum osmol elevated Do you want consulting provider notified?: Yes Primary care physician: [facility] Course: Chief Complaint: Dizzy History of presenting complaint: This is a 48-year-old patient chronic stable medical conditions include hypertension, gout, morbid obesity. Patient presents with multitudinous symptoms. Patient presents with 1 month of feeling dizzy. Lately feeling foggy in his head. Sometimes feels like his: Passed out. He is noted that when he is closer to the electroplating palpable which is about 10 feet away and sometimes his symptoms are worse. Is also numbness and tingling in hands and feet for quite some time. Does do fever and chill. On closer questioning patient of about 2 months ago was drinking heavy alcohol. Several beers a day. He stopped drinking. Because the symptoms came on for last 2 days again has been drinking alcohol. Patient also tolerated tremors and anxiety while in the hospital. Last drink was yesterday. Admitted with-acute alcohol withdrawal, osmolar gap general to alcoholism. Started on Valium beta kenzie. IV fluids. Patient responded very well. Alcohol withdrawal symptoms greatly improved. Discussed with patient. And the . At length. Patient was evaluated be tapered off over 3 days. Patient told to return to work in 4 days. At this point all of his symptoms are felt to be from alcoholism. Dizziness also greatly improved. if neuro symptoms were to recur then patient will probably need an MRI. This was discussed at length again with the patient . Patient also already follows with the flower grader. He will follow with the same. Also will follow-up with GI. Discussion and discharge planning more than 35 minutes Consultation: Nephrology Physical examination: VITAL SIGNS: 98.4, 107, 16, 146/88, 96% on room air GENERAL: Sitting up. Spider nevi present on the upper chest wall with gynecomastia. Patient has palmar erythema. Prominent superficial veins of the upper body EYES: Pupils equal. Conjunctiva normal. HEENT: External appearance of nose and ears normal, oral cavity grossly normal. NECK: JVD not raised; masses not palpable. HEART: First and second heart sounds are normal; no edema. LUNGS: Respiratory rate normal; clear to auscultation. ABDOMEN: Soft, nontender, liver spleen not palpable, no masses palpable. PSYCH: [Alert and oriented x3; mood and affect normal NEUROLOGICAL: Cranial nerves grossly intact; no facial asymmetry, power and sensation grossly intact. Tremors INVESTIGATIONS, reviewed in the clinical context: White count 2.4 hemoglobin 13 platelets 22 Previous testing White count 2.8 hemoglobin 14.5 MCV 102.6 platelets 35 Pro time 12.1 Potassium 4.2 creatinine 0.75 glucose 104 serum osmolality 348 AST 120 ALT 46 UA negative. Serum acetone negative Urine drug screen negative serum alcohol 158 qualitative acetone negative Serum osmolality-297 Assessment: -Acute alcohol withdrawal syndrome as manifested by tachycardia high blood pressure tremors. -Alcoholic liver disease with elevated AST, with signs of chronic liver disease -Bicytopenia likely from alcoholism likely from myelosuppression-patient is already following with flower grader as an outpatient. -Chronic B12 deficiency could be from alcoholism -Morbid obesity BMI 45.3 -Prolonged pro time from alcoholic liver disease -Elevated serum osmolarity from alcoholism -Dizziness. - resolved. No further neuro workup at the present. Plan: Discharged home Patient Condition at Discharge: Stable Plan - Discharge Summary Discharge Rx Participant: No New Discharge Prescriptions: New Metoprolol Tartrate [Lopressor] 12.5 mg PO TID #60 tab Diazepam [Valium] 2 mg PO Q8HR #8 tab Thiamine [Vitamin B-1] 100 mg PO BID-W/MEALS #60 tab Continue Lisinopril-Hctz 20-12.5 mg [Zestoretic 20-12.5] 1 tab PO DAILY Cyanocobalamin [Vitamin B-12 Injection] 1,000 mcg SQ SA Allopurinol [Zyloprim] 300 mg PO DAILY Discontinued Furosemide [Lasix] 20 mg PO DAILY Discharge Medication List Allopurinol [Zyloprim] 300 mg PO DAILY 06/04/19 [History] Cyanocobalamin [Vitamin B-12 Injection] 1,000 mcg SQ SA 06/04/19 [History] Lisinopril-Hctz 20-12.5 mg [Zestoretic 20-12.5] 1 tab PO DAILY 06/04/19 [History] Diazepam [Valium] 2 mg PO Q8HR #8 tab 06/06/19 [Rx] Metoprolol Tartrate [Lopressor] 12.5 mg PO TID #60 tab 06/06/19 [Rx] Thiamine [Vitamin B-1] 100 mg PO BID-W/MEALS #60 tab 06/06/19 [Rx] Follow up Appointment(s)/Referral(s): Valentin Stone MD [STAFF PHYSICIAN] - 1 Week (Bicytopenia, Office closed Please call to make appointment) Harvey Galicia DO [Primary Care Provider] - 1-2 days (office closed please call to make appointment) Ricardo Dee MD [STAFF PHYSICIAN] - 1 Week (office closed please call to make appointment) Discharge/Stand Alone Forms: Work/School Release / Restrict Discharge Disposition: HOME SELF-CARE
[2019-06-07] MEDS ORDERED: amLODIPine 5 MG TAB PO SCH (09:00)
== END 2019-06-06 13:10 | disposition home or self-care (01) | DRG 897 ==
LOC: EC 12:01 → 4SSUR 17:43
PROVIDERS: ADMIT Hospitalist; ATTEND Hospitalist
DX: F10.239 Alcohol dependence with withdrawal, unspecified (principal); Z68.42 Body mass index [BMI] 45.0-49.9, adult; D69.59 Other secondary thrombocytopenia; D70.9 Neutropenia, unspecified; E53.8 Deficiency of other specified B group vitamins; E66.01 Morbid (severe) obesity due to excess calories; F41.9 Anxiety disorder, unspecified; I10 Essential (primary) hypertension; K70.9 Alcoholic liver disease, unspecified; M10.9 Gout, unspecified; Z77.098 Contact with and (suspected) exposure to other hazardous, chiefly nonmedicinal, chemicals; Z79.899 Other long term (current) drug therapy; Z82.49 Family history of ischemic heart disease and other diseases of the circulatory system; Z87.891 Personal history of nicotine dependence; Z53.09 Procedure and treatment not carried out because of other contraindication; N62 Hypertrophy of breast; I78.1 Nevus, non-neoplastic; L53.8 Other specified erythematous conditions
CPT/HCPCS: 36415; 36600; 70450; 71046; 76705; 80048; 80053; 80306; 80320; 81003; 82009; 82375; 82550; 82805; 83930; 84100; 84484; 84600; 85025; 85027; 85610; 85730; 93005; 95816; 96361; 96365; 96372; 96374; 99285

== ENCOUNTER → 2020-11-22 | Outpatient (CLI) | payer BC ==
[~2020-11-22] MED LIST: REGADENOSON 0.4 MG/5 ML SYRINGE IV PRN
--- NOTE | 2020-11-22 13:43 | EST ---
EXERCISE STRESS AGE: 50 SEX: M HT: 6'1" WT: 350 lbs. PROTOCOL: Lexiscan STAGE: NA DURATION OF EXERCISE: NA HEART RATE REST: 87 BLOOD PRESSURE REST: 122/93 MAXIMUM HEART RATE ACHIEVED: 94 MAXIMUM BLOOD PRESSURE: 139/82 85% MPHR: 143 100% MPHR: 168 METS: NA INDICATIONS: Shortness of breath CLINICAL INFORMATION: Baseline EKG revealed normal sinus rhythm without significant ST-T changes. With Lexiscan administration, heart rate changed from 82 to 94 beats per minute. Blood pressure changed from 122/90 to 137/75. Patient did not have significant symptoms. EKG was unremarkable. By EKG criteria, this is an unremarkable Lexiscan stress test. The nuclear scan results, which are more pertinent, will be reported by the radiologist. MMODL / IJN: [id number] /
--- NOTE | 2020-11-22 15:38 | NM ---
EXAMINATION TYPE: NM stress lexiscan cardiolite DATE OF EXAM: 11/22/2020 COMPARISON: NONE HISTORY: Chest pain, dizziness TECHNIQUE: After the intravenous administration of 10.2 mCi Tc 99m Sestamibi - Cardiolite resting SP ECT images acquired 45 minutes post injection. The patient received 0.4mg Lexiscan, 26.4 mCi Tc 99m Sestamibi - Stress images obtained [address] injection FINDINGS: Review of stress and rest SPECT images demonstrates decreased uptake along the inferior apical left v entricle on stress as compared to rest images and also along the anterior wall. Gated analysis shows normal wall motion with an estimated left ventricular ejection fraction of 70 %. IMPRESSION: Pharmacologically induced left ventricular myocardial ischemia. Consider echocardiographic correlatio n for elevated ejection fraction. Report relayed to Timoteo Monroy at the time of dictation
== END | disposition home or self-care (01) ==
LOC: RADNMMAIN 07:45
PROVIDERS: ATTEND Family Medicine
DX: I25.9 Chronic ischemic heart disease, unspecified (principal)
CPT/HCPCS: 93017; 78452; A9500; J2785